=== PATIENT | female | born 1975 | race Caucasian/White ===

== ENCOUNTER 2016-11-25 11:28 | Inpatient (IN) | payer OTHER ==
[2016-11-25] MEDS ORDERED: HYDROmorphone 1 MG/ML 1 ML SYRINGE IVP STA (11:50)
[2016-11-25] MEDS ORDERED: ESOMEPRAZOLE 20 MG in SODIUM CHLORIDE 0.9% 50 ML IVPB STA (11:57)
--- NOTE | 2016-11-25 11:57 | ED ---
General Adult HPI - General Chief complaint: Abdominal Pain Stated complaint: Abdominal Pain Time Seen by Provider: 11/25/16 11:30 Source: patient, RN notes reviewed Mode of arrival: ambulatory Limitations: no limitations - History of Present Illness Initial comments: This is a 41-year-old female who presents emergency Department complaining of epigastric abdominal pain. She has a past medical history significant for significant gastric reflux. states she's always eating Tums. Patient states the pain started and has not let up. Patient states she's had in the past but always seems to resolve after a day or so. Patient states she has no nausea or vomiting. Patient states eating or drinking definitely makes it worse. Patient denies any diarrhea. Patient states palpating her abdomen does not increase the pain. Patient states it does radiate to her back and occasionally radiates into her chest. Patient denies any difficulty breathing or shortness of breath per patient denies any diaphoresis. Patient states lying flat does seem to increase the intensity of the pain. Patient denies any lightheadedness dizziness or near syncopal episode. - Related Data Home Medications Medication Instructions Recorded Confirmed Acetaminophen Tab [Tylenol Tab] 1,000 mg PO Q6HR PRN 11/25/16 11/25/16 Atenolol [Tenormin] 25 mg PO HS 11/25/16 11/25/16 Lisinopril [Zestril] 10 mg PO DAILY 11/25/16 11/25/16 Allergies Allergy/AdvReac Type Severity Reaction Status Date / Time Penicillins Allergy Rash/Hives Verified 11/25/16 11:44 Review of Systems ROS Statement: Those systems with pertinent positive or pertinent negative responses have been documented in the HPI. ROS Other: All systems not noted in ROS Statement are negative. Past Medical History Past Medical History: Hypertension History of Any Multi-Drug Resistant Organisms: None Reported Past Surgical History: Tubal Ligation Additional Past Surgical History / Comment(s): eye Past Psychological History: No Psychological Hx Reported Smoking Status: Never smoker Past Alcohol Use History: None Reported Past Drug Use History: None Reported General Exam - General Exam Comments Initial Comments: GENERAL: Patient is well-developed and well-nourished. Patient is nontoxic and well- hydrated and is in mild distress. ENT: Neck is soft and supple. No significant lymphadenopathy is noted. Oropharynx is clear. Moist mucous membranes. Neck has full range of motion without eliciting any pain. EYES: The sclera were anicteric and conjunctiva were pink and moist. Extraocular movements were intact and pupils were equal round and reactive to light. Eyelids were unremarkable. PULMONARY: Unlabored respirations. Good breath sounds bilaterally. No audible rales rhonchi or wheezing was noted. CARDIOVASCULAR: There is a regular rate and rhythm without any murmurs gallops or rubs. ABDOMEN: Soft and nontender with normal bowel sounds. No palpable organomegaly was noted. There is no palpable pulsatile mass. SKIN: Skin is clear with no lesions or rashes and otherwise unremarkable. NEUROLOGIC: Patient is alert and oriented x3. Cranial nerves II through XII are grossly intact. Motor and sensory are also intact. Normal speech, volume and content. Symmetrical smile. MUSCULOSKELETAL: Normal extremities with adequate strength and full range of motion. No lower extremity swelling or edema. No calf tenderness. LYMPHATICS: No significant lymphadenopathy is noted PSYCHIATRIC: Normal psychiatric evaluation. Limitations: no limitations Course Vital Signs 11/25/16 11/25/16 11:29 13:18 Temperature 97.8 F Pulse Rate 68 81 Respiratory 16 18 Rate Blood Pressure 131/78 146/78 O2 Sat by Pulse 100 99 Oximetry Medical Decision Making - Medical Decision Making Patient received a GI cocktail when she did it made her pain considerably worse and she had to stand up to walk around until the pain went away and eventually came back to its baseline 5 out of 10. I spoke with Dr. Dalton she wanted the scope the patient tomorrow so I spoke with Dr. Johnson he agreed to admit the patient admitted the patient and consult Dr. Dalton. - Lab Data Result diagrams: 11/25/16 12:30 11/25/16 12:30 Lab Results 11/25/16 11/25/16 11/25/16 Range/Units 12:30 12:30 12:30 WBC 9.3 (3.8-10.6) k/uL RBC 4.83 (3.80-5.40) m/uL Hgb 14.4 (11.4-16.0) gm/dL Hct 41.4 (34.0-46.0) % MCV 85.6 (80.0-100.0) fL MCH 29.8 (25.0-35.0) pg MCHC 34.8 (31.0-37.0) g/dL RDW 12.4 (11.5-15.5) % Plt Count 287 (150-450) k/uL Neutrophils % 75 % Lymphocytes % 18 % Monocytes % 4 % Eosinophils % 1 % Basophils % 0 % Neutrophils # 6.9 (1.3-7.7) k/uL Lymphocytes # 1.7 (1.0-4.8) k/uL Monocytes # 0.4 (0-1.0) k/uL Eosinophils # 0.1 (0-0.7) k/uL Basophils # 0.0 (0-0.2) k/uL Sodium 139 (137-145) mmol/L Potassium 4.3 (3.5-5.1) mmol/L Chloride 104 (98-107) mmol/L Carbon Dioxide 24 (22-30) mmol/L Anion Gap 11 mmol/L BUN 6 L (7-17) mg/dL Creatinine 0.65 (0.52-1.04) mg/dL Est GFR (MDRD) Af Amer >60 (>60 ml/min/1.73 sqM) Est GFR (MDRD) Non-Af >60 (>60 ml/min/1.73 sqM) Glucose 92 (74-99) mg/dL Calcium 9.1 (8.4-10.2) mg/dL Total Bilirubin 0.8 (0.2-1.3) mg/dL AST 24 (14-36) U/L ALT 48 (9-52) U/L Alkaline Phosphatase 65 (38-126) U/L Total Creatine Kinase 47 (30-135) U/L CK-MB (CK-2) 0.2 (0.0-2.4) ng/mL CK-MB (CK-2) Rel Index 0.4 Troponin I <0.012 (0.000-0.034) ng/mL Total Protein 7.5 (6.3-8.2) g/dL Albumin 4.6 (3.5-5.0) g/dL Amylase 40 (30-110) U/L Lipase 96 (23-300) U/L Urine Color Urine Appearance (Clear) Urine pH (5.0-8.0) Ur Specific [place] (1.001-1.035) Urine Protein (Negative) Urine Glucose (UA) (Negative) Urine Ketones (Negative) Urine Blood (Negative) Urine Nitrite (Negative) Urine Bilirubin (Negative) Urine Urobilinogen (<2.0) mg/dL Ur Leukocyte Esterase (Negative) Urine RBC (0-5) /hpf Urine WBC (0-5) /hpf Urine Bacteria (None) /hpf 11/25/16 Range/Units 12:32 WBC (3.8-10.6) k/uL RBC (3.80-5.40) m/uL Hgb (11.4-16.0) gm/dL Hct (34.0-46.0) % MCV (80.0-100.0) fL MCH (25.0-35.0) pg MCHC (31.0-37.0) g/dL RDW (11.5-15.5) % Plt Count (150-450) k/uL Neutrophils % % Lymphocytes % % Monocytes % % Eosinophils % % Basophils % % Neutrophils # (1.3-7.7) k/uL Lymphocytes # (1.0-4.8) k/uL Monocytes # (0-1.0) k/uL Eosinophils # (0-0.7) k/uL Basophils # (0-0.2) k/uL Sodium (137-145) mmol/L Potassium (3.5-5.1) mmol/L Chloride (98-107) mmol/L Carbon Dioxide (22-30) mmol/L Anion Gap mmol/L BUN (7-17) mg/dL Creatinine (0.52-1.04) mg/dL Est GFR (MDRD) Af Amer (>60 ml/min/1.73 sqM) Est GFR (MDRD) Non-Af (>60 ml/min/1.73 sqM) Glucose (74-99) mg/dL Calcium (8.4-10.2) mg/dL Total Bilirubin (0.2-1.3) mg/dL AST (14-36) U/L ALT (9-52) U/L Alkaline Phosphatase (38-126) U/L Total Creatine Kinase (30-135) U/L CK-MB (CK-2) (0.0-2.4) ng/mL CK-MB (CK-2) Rel Index Troponin I (0.000-0.034) ng/mL Total Protein (6.3-8.2) g/dL Albumin (3.5-5.0) g/dL Amylase (30-110) U/L Lipase (23-300) U/L Urine Color Light Yellow Urine Appearance Clear (Clear) Urine pH 6.0 (5.0-8.0) Ur Specific [place] 1.003 (1.001-1.035) Urine Protein Negative (Negative) Urine Glucose (UA) Negative (Negative) Urine Ketones 1+ H (Negative) Urine Blood Moderate H (Negative) Urine Nitrite Negative (Negative) Urine Bilirubin Negative (Negative) Urine Urobilinogen <2.0 (<2.0) mg/dL Ur Leukocyte Esterase Moderate H (Negative) Urine RBC 147 H (0-5) /hpf Urine WBC 18 H (0-5) /hpf Urine Bacteria Few H (None) /hpf Disposition Clinical Impression: Epigastric abdominal pain Disposition: ADMITTED IP TO THIS [facility] Referrals: Jazmyne Acevedo MD [Primary Care Provider] - 1-2 days Time of Disposition: 13:55
[2016-11-25 12:46] LABS: Basophils % (A) 0 %; CH 29.9; Eosinophils # (A) 0.1 k/uL (0-0.7); Eosinophils % (A) 1 %; HCT 41.4 % (34.0-46.0); HDW 2.63; HGB 14.4 gm/dL (11.4-16.0); Luc # (Auto) 0.18; Luc % (Auto) 2; Lymphocytes # (A) 1.7 k/uL (1.0-4.8); Lymphocytes % (A) 18 %; MCH 29.8 pg (25.0-35.0); MCHC 34.8 g/dL (31.0-37.0); MCV 85.6 fL (80.0-100.0); Mean Platelet Volume 7.5; Monocytes # (A) 0.4 k/uL (0-1.0); Monocytes % (A) 4 %; Neutrophils # (A) 6.9 k/uL (1.3-7.7); Neutrophils % (A) 75 %; RBC 4.83 m/uL (3.80-5.40); RDW 12.4 % (11.5-15.5); WBC 9.3 k/uL (3.8-10.6); WBC (Perox) 9.39
[2016-11-25 12:48] LABS: ALT 48 U/L (9-52); AST 24 U/L (14-36); Alkaline Phosphatase 65 U/L (38-126); Amylase 40 U/L (30-110); Anion Gap 11 mmol/L; Blood Urea Nitrogen 6 mg/dL (7-17); Calcium 9.1 mg/dL (8.4-10.2); Carbon Dioxide 24 mmol/L (22-30); Chloride 104 mmol/L (98-107); Glucose 92 mg/dL (74-99); Non-African American GFR(MDRD) >60 (>60 ml/min/1.73 sqM); Potassium 4.3 mmol/L (3.5-5.1); Sodium 139 mmol/L (137-145); Total Bilirubin 0.8 mg/dL (0.2-1.3); Total Protein 7.5 g/dL (6.3-8.2)
[2016-11-25] MEDS ORDERED: MAG HYDROX/AL HYDROX/SIMETH 30 ML, HYOSCYAMINE ELIXIR 10 ML, CIMETIDINE HCL 300 MG PO STA ×3 (13:04)
[2016-11-25 13:09] LABS: Creatine Kinase 47 U/L (30-135)
[2016-11-25 13:11] LABS: Appearance,Urine Clear (Clear); Bacteria,Urine Few /hpf; Bilirubin,Urine Negative (Negative); Glucose,Urine (UA) Negative (Negative); Ketones,Urine 1+ (Negative); Leukocyte Esterase,Urine Moderate (Negative); Nitrite,Urine Negative (Negative); Particle Count 1847; Protein,Urine Negative (Negative); RBC,Urine 147 /hpf (0-5); Specific Gravity,Urine 1.003 (1.001-1.035); UA Billing (MACRO vs. MICRO) MICRO; Urobilinogen,Urine <2.0 mg/dL (<2.0); WBC,Urine 18 /hpf (0-5)
[2016-11-25 13:22] LABS: Creatine Kinase MB 0.2 ng/mL (0.0-2.4); Troponin I <0.012 ng/mL (0.000-0.034)
[2016-11-25] MEDS ORDERED: SODIUM CHLORIDE 0.9% 1,000 ML IV ONE (13:56)
[2016-11-25 14:59] VITALS: BMI 31.3
[2016-11-25] MEDS ORDERED: ACETAMINOPHEN TAB 500 MG TAB PO PRN (15:57)
[2016-11-25] MEDS ORDERED: LISINOPRIL 10 MG TAB PO SCH (16:00)
--- NOTE | 2016-11-25 16:39 | US ---
EXAMINATION TYPE: US gallbladder DATE OF EXAM: 11/25/2016 COMPARISON: NONE CLINICAL HISTORY: abdominal pain. Epigastric pain EXAM MEASUREMENTS: Liver Length: 14.6 cm Gallbladder Wall: 0.7 cm CBD: 0.5 cm Right Kidney: 12.6 x 4.1 x 5.4 cm Pancreas: portions obscured by overlying bowel content Liver: attenuating Gallbladder: hydropic,multiple stones, thickened GB wall, pericholecystic fluid noted Evidence for sonographic Napoles's sign: Yes CBD: wnl Right Kidney: No evidence of hydronephrosis or mass IMPRESSION: Correlate for acute cholecystitis.
[2016-11-25] MEDS: IOHEXOL 350 MG/ML 25 ML BOTTLE (ORAL USE) PO PRN ×2 (16:54→17:46)
[2016-11-25] MEDS: HYDROmorphone 1 MG/ML 1 ML SYRINGE IVP PRN ×2 (16:54→23:23)
--- NOTE | 2016-11-25 19:02 | CT ---
EXAMINATION TYPE: CT abdomen pelvis w con DATE OF EXAM: 11/25/2016 COMPARISON: NONE HISTORY: Upper Abdominal pain CT DLP: 1493 mGycm Automated exposure control for dose reduction was used. TECHNIQUE: Helical acquisition of images was performed from the lung bases through the pelvis. CONTRAST: Performed with Oral Contrast and with IV Contrast, patient injected with 100 mL of Omnipaque 300. FINDINGS: LUNG BASES: No significant abnormality is appreciated. LIVER/GB: There are large calcified gallstones within a gallbladder which is mildly distended. The ga llbladder wall, however, is not indistinct and there is no inflammatory changes within the adjacent r ight anterior pararenal space. There is no biliary tree obstruction, and the common bile duct has nor mal caliber. No other findings. PANCREAS: No significant abnormality is seen. SPLEEN: No significant abnormality is seen. ADRENALS: No significant abnormality is seen. KIDNEYS: No significant abnormality is seen. FREE AIR: No free air is visualized. RETROPERITONEAL ADENOPATHY: None visualized REPRODUCTIVE ORGANS: No significant abnormality is seen URINARY BLADDER: No significant abnormality is seen. PELVIC ADENOPATHY: None visualized. OSSEOUS STRUCTURES: No significant abnormality is seen. BOWEL: No significant abnormality is seen. Appendix is visualized. OTHER: The vasculature of the abdomen and pelvis is unremarkable. IMPRESSION: NO EVIDENCE ACUTE INTRAPELVIC PROCESS. INCIDENTAL FINDING OF CHOLELITHIASIS WITH MILD GALLBLADDER DISTENTION.
[2016-11-25] MEDS: ATENOLOL 25 MG TAB PO SCH (21:16)
[2016-11-25] MEDS: ONDANSETRON 4 MG/2 ML VIAL IVP PRN (21:17)
[2016-11-25 21:24] LABS: Appearance,Urine Cloudy (Clear); Bacteria,Urine Moderate /hpf; Bilirubin,Urine Negative (Negative); Glucose,Urine (UA) Negative (Negative); Ketones,Urine 3+ (Negative); Leukocyte Esterase,Urine Large (Negative); Mucus,Urine Rare /hpf; Nitrite,Urine Negative (Negative); PH, Urine 5.5 (5.0-8.0); Particle Count 7412; Protein,Urine 1+ (Negative); RBC,Urine >182 /hpf (0-5); Specific Gravity,Urine 1.042 (1.001-1.035); Squamous Epithelial Cell,Urine 10 /hpf (0-4); UA Billing (MACRO vs. MICRO) MICRO; Urobilinogen,Urine <2.0 mg/dL (<2.0); WBC,Urine 53 /hpf (0-5)
[2016-11-26] MEDS: HYDROmorphone 1 MG/ML 1 ML SYRINGE IVP PRN ×3 (04:47→23:48)
--- NOTE | 2016-11-26 08:00 | HP ---
DATE OF ADMISSION: 11/25/16 CHIEF COMPLAINT: Abdominal pain and nausea. HISTORY OF PRESENT ILLNESS: This 41-year-old woman with a past medical history of multiple medical problems including hypertension, history of cataracts, tubal ligation, being followed by Dr. Acevedo in the outpatient setting is complaining of abdominal pain over several days. Because of lack of improvement and lack of improvement with TUMS, the patient came to [facility] and admitted to the hospital for further evaluation and treatment. The patient being followed by Dr. Acevedo in the outpatient setting. There is no history of any fevers, rigors or chills. No history of any headache , loss of consciousness or seizures. The pain is located in the right upper quadrant also, to the back according to her. Evaluation in the ER showed normal CBC, CMP, amylase, lipase. UA showed moderate hematuria. There is no history of fever, rigors or chills. No history of headache. Past medical history of hypertension, cataracts, tubal ligation. Medications prior to admission are: Home medications are reviewed and include: 1. Zestril 10 mg daily. 2. Tenormin 25 mg q.h.s. 3. Tylenol 1000 mg q6h prn. ALLERGIES: PENICILLIN. FAMILY HISTORY: History of hypertension in the family. SOCIAL HISTORY: Previous history of smoking. No history of alcohol intake. REVIEW OF SYSTEMS: HEENT: No diminished vision. No diminished hearing. Cardiovascular system: No angina or palpitations. Respiratory: As mentioned earlier. GI: Nausea or vomiting. : No dysuria. Nervous system: No numbness, weakness. Allergy/Immunology: No asthma or hayfever. Musculoskeletal: As mentioned earlier. Hematology/oncology: No history of anemia. Endocrine. No history of diabetes or hypothyroidism. Constitutional: As mentioned earlier. Dermatology: Negative. Rheumatology: Negative. Psychiatry: As mentioned earlier. PHYSICAL EXAMINATION: The patient is alert and oriented times three. Pulse 65. Blood pressure 145/82. Respiratory rate 16, temperature 98 degrees. Pulse ox 100% on room air. HEENT: Conjunctivae normal. NECK: No JVD. Cardiovascular: S1, S2 muffled. Respiratory: Breath sounds diminished at the bases. No rhonchi and no crackles. Abdomen is soft. Mild diffuse tenderness in the epigastric area. No guarding, no rigidity. No mass palpable. Legs: No edema. No swelling. Nervous system: Higher functions as mentioned earlier. Moves all four limbs. No focal deficits. Lymphatics: No lymph nodes palpable in the neck, axillae or groin. SKIN: No ulcer, rash or bleeding. LABS: CBC within normal limits. CMP within normal limits. ASSESSMENT: 1. Acute upper abdominal pain for evaluation, possible acute gastritis, rule out Cholelithiasis, or peptic ulcer disease. 2. Hypertension. 3. Cataracts. 4. Tubal ligation. 5. Obesity, body mass index 33.4. 6. Remote history of nicotine dependence. 7. FULL CODE. RECOMMENDATIONS AND DISCUSSION: In this 41-year-old woman who presented with multiple complex medical issues, we will monitor the patient closely. Continue the current medications. Continue symptomatic treatment. I recommend CT scan of the abdomen and pelvis and also recommend repeat UA and I would also recommend ultrasound of the abdomen, symptomatic treatment. Gastroenterology treatment. Possible EGD. Otherwise, prognosis is guarded because of the multiple complex medical issues. Further recommendations to follow. A copy of dictation being forwarded to Dr. Acevedo who is the primary care physician. I would also recommend continue with the home medications as well. Discussed with the patient, understands and agrees. MTDD
[2016-11-26 08:07] LABS: Basophils % (A) 0 %; CH 30.3; CHCM 34.8; Eosinophils % (A) 0 %; HCT 39.2 % (34.0-46.0); HDW 2.58; HGB 13.6 gm/dL (11.4-16.0); Luc # (Auto) 0.23; Luc % (Auto) 2; Lymphocytes # (A) 1.7 k/uL (1.0-4.8); Lymphocytes % (A) 13 %; MCH 30.2 pg (25.0-35.0); MCHC 34.6 g/dL (31.0-37.0); MCV 87.3 fL (80.0-100.0); Mean Platelet Volume 8.4; Monocytes # (A) 0.7 k/uL (0-1.0); Monocytes % (A) 5 %; Neutrophils # (A) 10.7 k/uL (1.3-7.7); Neutrophils % (A) 80 %; RBC 4.49 m/uL (3.80-5.40); RDW 13.2 % (11.5-15.5); WBC 13.5 k/uL (3.8-10.6); WBC (Perox) 13.48
[2016-11-26 08:18] LABS: Anion Gap 12 mmol/L; Blood Urea Nitrogen 4 mg/dL (7-17); Calcium 8.8 mg/dL (8.4-10.2); Carbon Dioxide 23 mmol/L (22-30); Chloride 104 mmol/L (98-107); Glucose 89 mg/dL (74-99); Non-African American GFR(MDRD) >60 (>60 ml/min/1.73 sqM); Potassium 4.2 mmol/L (3.5-5.1); Sodium 139 mmol/L (137-145)
[2016-11-26] MEDS: LISINOPRIL 10 MG TAB PO SCH (08:27)
[2016-11-26] MEDS: ESOMEPRAZOLE 20 MG in SODIUM CHLORIDE 0.9% 50 ML IVPB SCH (08:27)
--- NOTE | 2016-11-26 09:49 | P.CONS ---
History of Present Illness - Reason for Consult Consult date: 11/26/16 Epigastric pain Requesting physician: Geoff Pearce - History of Present Illness 41-year-old female presents with severe epigastric pain nausea vomiting since last . Patient has had episodes of this type of presentation on-and- off for years but due to lack of health insurance never was investigated. Patient was camping last day had some pork chops and developed epigastric abdominal pain shortly thereafter. Admission white count 9.3 presently 13.5. Total bilirubin 0.8. AST 24. ALT 40. Alk phos 265. Lipase 96. Consuming foods and drinking liquids exacerbates her pain. No changes in the color or urine or stool. Patient is menstruating. Urinalysis large leukocyte esterase and moderate WBCs. Large amount of blood. Ultrasound abdomen reported hydropic gallbladder with multiple stones thickened gallbladder wall 0.7 cm with pericholecystic fluid. CT abdomen and pelvis reported incidental finding of cholelithiasis with mild gallbladder distention without intra-or extrahepatic biliary dilatation. Repeat LFTs this morning are pending. She has been afebrile. Denies hematemesis hematochezia melena. Review of Systems Constitutional: Denies fever, chills, sweats, weight gain, or loss. HEENT: Negative for migraines, blurred vision or loss, earaches, drainage, tinnitus, oral mucosal lesions, dysphagia, or odynophagia. CARDIAC: Hypertension. Negative for chest pain, arrhythmias, or palpitation. RESPIRATORY: Negative for shortness of breath, hemoptysis, cough, or sputum production. GI: See HPI for pertinent findings. : Negative for hematuria, urgency, frequency, polyuria, or dysuria. GYNc: Denies possibility of . Negative vaginal discharge. MUSCULOSKELETAL: Negative for muscle aches, swelling, arthritis, and arthralgias. NEUROLOGIC: Negative for stroke or TIA. ENDOCRINE: Negative for thyroid problems. SKIN: Negative for rash or itching. PSYCHIATRIC: Negative history for depression and anxiety All systems: negative (See HPI) Past Medical History Past Medical History: Hypertension Additional Past Medical History / Comment(s): cataracts History of Any Multi-Drug Resistant Organisms: None Reported Past Surgical History: Tubal Ligation Additional Past Surgical History / Comment(s): cataracts Past Anesthesia/Blood Transfusion Reactions: No Reported Reaction Past Psychological History: No Psychological Hx Reported Smoking Status: Former smoker Past Alcohol Use History: None Reported Past Drug Use History: None Reported - Past Family History Mother Family Medical History: Hypertension Medications and Allergies Home Medications Medication Instructions Recorded Confirmed Type Acetaminophen Tab [Tylenol Tab] 1,000 mg PO Q6HR PRN 11/25/16 11/25/16 History Atenolol [Tenormin] 25 mg PO HS 11/25/16 11/25/16 History Lisinopril [Zestril] 10 mg PO DAILY 11/25/16 11/25/16 History Allergies Allergy/AdvReac Type Severity Reaction Status Date / Time Penicillins Allergy Rash/Hives Verified 11/25/16 11:44 Physical Exam Vitals: Vital Signs Temp Pulse Pulse Resp BP BP Pulse Ox 11/26/16 08:00 98.1 F 83 18 147/83 99 11/26/16 03:59 16 11/26/16 00:00 98.4 F 70 16 133/78 96 11/25/16 20:00 98.4 F 85 16 156/79 98 11/25/16 14:57 98.0 F 65 16 145/82 100 11/25/16 14:07 98 F 69 18 129/75 100 11/25/16 13:18 81 18 146/78 99 11/25/16 11:29 97.8 F 68 16 131/78 100 Intake and Output 11/25/16 11/26/16 11/26/16 22:59 06:59 14:59 Other: Voiding Method Toilet # Voids 1 1 General appearance: The patient is alert, oriented, in no acute distress. HET: Head is normocephalic and atraumatic. Pupils are equal and reactive. Oropharynx is clear without lesions. Neck: Supple without lymphadenopathy. Trachea midline. Heart: S1 S2. Regular rate and rhythm. Lungs: No crackles or wheezes are heard. Abdomen: Soft, mild midepigastric right upper quadrant tenderness, nondistended with bowel sounds. No peritoneal signs. No palpable organomegaly or masses. Extremities: Normal skin color and turgor. No cyanosis, rash, ulceration, clubbing, or edema. Radial and pedal pulses are 2/4 bilaterally. Neurological: No focal deficits. Strength and sensation are grossly intact. Results CBC & Chem 7: 11/26/16 07:38 11/26/16 07:38 Labs: Abnormal Lab Results - Last 24 Hours (Table) 11/25/16 11/25/16 11/25/16 Range/Units 12:30 12:32 20:50 WBC (3.8-10.6) k/uL Neutrophils # (1.3-7.7) k/uL BUN 6 L (7-17) mg/dL Urine Appearance Cloudy H (Clear) Ur Specific [place] 1.042 H (1.001-1.035) Urine Protein 1+ H (Negative) Urine Ketones 1+ H 3+ H (Negative) Urine Blood Moderate H Large H (Negative) Ur Leukocyte Esterase Moderate H Large H (Negative) Urine RBC 147 H >182 H (0-5) /hpf Urine WBC 18 H 53 H (0-5) /hpf Ur Squamous Epith Cells 10 H (0-4) /hpf Urine Bacteria Few H Moderate H (None) /hpf Urine Mucus Rare H (None) /hpf Urine Yeast (Budding) Few H (None) /hpf 11/26/16 11/26/16 Range/Units 07:38 07:38 WBC 13.5 H (3.8-10.6) k/uL Neutrophils # 10.7 H (1.3-7.7) k/uL BUN 4 L (7-17) mg/dL Urine Appearance (Clear) Ur Specific [place] (1.001-1.035) Urine Protein (Negative) Urine Ketones (Negative) Urine Blood (Negative) Ur Leukocyte Esterase (Negative) Urine RBC (0-5) /hpf Urine WBC (0-5) /hpf Ur Squamous Epith Cells (0-4) /hpf Urine Bacteria (None) /hpf Urine Mucus (None) /hpf Urine Yeast (Budding) (None) /hpf US - abdomen: report reviewed (Dr. Dalton) Assessment and Plan (1) Epigastric abdominal pain Narrative/Plan: 41-year-old female presents with a five-day history of epigastric pain with mild leukocytosis with radial graphic imaging suggested of hydropic gallbladder cholelithiasis thickened wall and pericholecystic fluid possible cholecystitis. Urinalysis suggestive of possible urinary tract infection with large leukocyte esterase and moderate bacteria. Status: Acute Plan: 1. Recommend general surgical evaluation. 2. Nothing by mouth except medications. 3. Nexium 20 g IV daily. 4. EGD contingent on clinical course pending general surgical evaluation. Thank you for this kind referral and the opportunity to participate in the care of your patient. This consultation was discussed with Dr. Dalton. The impression and plan of care have been directed as dictated.
[2016-11-26] MEDS: LEVOFLOXACIN 500MG-D5W PMX 500 MG in DEXTROSE/WATER 1 100ML.BAG IVPB SCH (17:07)
[2016-11-26] MEDS ORDERED: HYDROmorphone 1 MG/ML 1 ML SYRINGE IVP PRN (18:19)
--- NOTE | 2016-11-26 18:25 | P.GSCN ---
History of Present Illness Consult date: 11/26/16 Reason for Consult: abdominal pain History of present illness: The patient is a 41-year-old female presented with abdominal pain of several days' duration. She's had "spells like this in the past but they've typically gone away in a few hours. This one was persistent so she came into the emergency department. CAT scan showed cholelithiasis but was otherwise unremarkable. The ultrasound showed evidence of cholelithiasis, gallbladder wall thickening and pericholecystic fluid. The patient denies any jaundice, acholic stools, fevers or chills. There is a family history of gallbladder disease. Review of Systems All systems: negative Past Medical History Past Medical History: Hypertension Additional Past Medical History / Comment(s): cataracts History of Any Multi-Drug Resistant Organisms: None Reported Past Surgical History: Tubal Ligation Additional Past Surgical History / Comment(s): cataracts Past Anesthesia/Blood Transfusion Reactions: No Reported Reaction Past Psychological History: No Psychological Hx Reported Smoking Status: Former smoker Past Alcohol Use History: None Reported Past Drug Use History: None Reported - Past Family History Mother Family Medical History: Hypertension Medications and Allergies Home Medications Medication Instructions Recorded Confirmed Type Acetaminophen Tab [Tylenol Tab] 1,000 mg PO Q6HR PRN 11/25/16 11/25/16 History Atenolol [Tenormin] 25 mg PO HS 11/25/16 11/25/16 History Lisinopril [Zestril] 10 mg PO DAILY 11/25/16 11/25/16 History Allergies Allergy/AdvReac Type Severity Reaction Status Date / Time Penicillins Allergy Rash/Hives Verified 11/25/16 11:44 Surgical - Exam Osteopathic Statement: *. No significant issues noted on an osteopathic structural exam other than those noted in the History and Physical/Consult. Vital Signs Temp Pulse Resp BP Pulse Ox 97.8 F 68 16 131/78 100 11/25/16 11:29 11/25/16 11:29 11/25/16 11:29 11/25/16 11:29 11/25/16 11:29 - General Appears uncomfortable well developed, well nourished - ENT normal mucosa, no hearing loss - Neck trachea midline, no lymphadectomy - Respiratory normal respiratory effort, clear to auscultation - Cardiovascular Rhythm: regular - Abdomen Abdomen: soft, tender (Right upper quadrant with some voluntary guarding), surgical scars (Infraumbilical scar), no rigid, no rebound Results - Labs 11/26/16 07:38 11/26/16 07:38 Abnormal Lab Results - Last 24 Hours (Table) 11/25/16 11/26/16 11/26/16 Range/Units 20:50 07:38 07:38 WBC 13.5 H (3.8-10.6) k/uL Neutrophils # 10.7 H (1.3-7.7) k/uL BUN 4 L (7-17) mg/dL Urine Appearance Cloudy H (Clear) Ur Specific [place] 1.042 H (1.001-1.035) Urine Protein 1+ H (Negative) Urine Ketones 3+ H (Negative) Urine Blood Large H (Negative) Ur Leukocyte Esterase Large H (Negative) Urine RBC >182 H (0-5) /hpf Urine WBC 53 H (0-5) /hpf Ur Squamous Epith Cells 10 H (0-4) /hpf Urine Bacteria Moderate H (None) /hpf Urine Mucus Rare H (None) /hpf Urine Yeast (Budding) Few H (None) /hpf Diabetes panel 11/26/16 Range/Units 07:38 Sodium 139 (137-145) mmol/L Potassium 4.2 (3.5-5.1) mmol/L Chloride 104 (98-107) mmol/L Carbon Dioxide 23 (22-30) mmol/L BUN 4 L (7-17) mg/dL Creatinine 0.57 (0.52-1.04) mg/dL Glucose 89 (74-99) mg/dL Calcium 8.8 (8.4-10.2) mg/dL Calcium panel 11/26/16 Range/Units 07:38 Calcium 8.8 (8.4-10.2) mg/dL Pituitary panel 11/26/16 Range/Units 07:38 Sodium 139 (137-145) mmol/L Potassium 4.2 (3.5-5.1) mmol/L Chloride 104 (98-107) mmol/L Carbon Dioxide 23 (22-30) mmol/L BUN 4 L (7-17) mg/dL Creatinine 0.57 (0.52-1.04) mg/dL Glucose 89 (74-99) mg/dL Calcium 8.8 (8.4-10.2) mg/dL Adrenal panel 11/26/16 Range/Units 07:38 Sodium 139 (137-145) mmol/L Potassium 4.2 (3.5-5.1) mmol/L Chloride 104 (98-107) mmol/L Carbon Dioxide 23 (22-30) mmol/L BUN 4 L (7-17) mg/dL Creatinine 0.57 (0.52-1.04) mg/dL Glucose 89 (74-99) mg/dL Calcium 8.8 (8.4-10.2) mg/dL - Imaging CT scan - abdomen: report reviewed Additional studies: Ultrasound report reviewed Assessment and Plan (1) Acute cholecystitis due to biliary calculus Status: Acute Plan: I recommended laparoscopic cholecystectomy possible open. The procedure risks and complications were discussed. Questions were encouraged and answered. She likely also has an acute urinary tract infection but is on appropriate antibiotics. I'll do the surgery for her tomorrow.
[2016-11-26] MEDS: ATENOLOL 25 MG TAB PO SCH (19:59)
[2016-11-26] MEDS ORDERED: MAG HYDROX/AL HYDROX/SIMETH 30 ML CUP PO PRN (23:53)
[2016-11-27] MEDS: HYDROmorphone 1 MG/ML 1 ML SYRINGE IVP PRN (02:54)
[2016-11-27] MEDS: ONDANSETRON 4 MG/2 ML VIAL IVP PRN ×2 (04:27→12:51)
--- NOTE | 2016-11-27 08:02 | PN ---
DATE OF SERVICE: 11/26/2016 This 41-year-old woman who was admitted with acute abdominal pain, also has possible cholelithiasis and cholecystitis. No chest pain or palpitation. No fever. The gallbladder ultrasound has been ordered and showed possible acute cholecystitis. The CAT scan of the abdomen was also done. The patient is followed by Dr. Acevedo in the outpatient setting. The CAT scan of the abdomen and pelvis showed no evidence of intrapelvic process and cholelithiasis and gallbladder distention was noted. PAST MEDICAL HISTORY: Reviewed. REVIEW OF SYSTEMS: CARDIOVASCULAR: No angina. RESPIRATORY: No cough or hemoptysis. GI: No nausea. : No dysuria. NERVOUS SYSTEM: No numbness or weakness. Current medications are reviewed and include: 1. Tylenol. 2. Tenormin. 3. Esomeprazole. 4. Dilaudid. 5. Zofran. PHYSICAL EXAM: The patient is alert and oriented x3. Pulse is 90, blood pressure 147/78, respirations are 18, temperature is 98.8, pulse ox 100% on room air. HEENT: Conjunctivae normal. Oral mucosa moist. NECK: No jugular venous distention. No carotid bruit. No lymph node enlargement. CARDIOVASCULAR: S1 and S2 muffled. RESPIRATORY: Breath sounds diminished at the bases. A few scattered rhonchi. No crackles. ABDOMEN: Soft, mild diffuse tenderness in the upper quadrant present, otherwise , no mass palpable. No guarding or rigidity. LEGS: No edema. No swelling. NERVOUS SYSTEM: No focal deficits. LABS: WBC 13.5. UA noted. ASSESSMENT: 1. Acute abdominal pain with possible acute cholelithiasis and cholecystitis and possible urinary tract infection. 2. Hypertension. 3. Cataracts. 4. Tubal ligation. RECOMMENDATIONS AND DISCUSSION: Recommend to continue current medications. Continue with monitoring and symptomatic treatment. Otherwise at this time, I would recommend surgical evaluation and possible surgery, laparoscopic cholecystectomy. Repeat labs. Guarded prognosis because multiple complex medical issues. Further recommendation to follow. See orders for details. MTDD
[2016-11-27] MEDS: LISINOPRIL 10 MG TAB PO SCH (09:56)
[2016-11-27] MEDS: ESOMEPRAZOLE 20 MG in SODIUM CHLORIDE 0.9% 50 ML IVPB SCH (10:04)
[2016-11-27] MEDS ORDERED: IV FLUID CONTINUATION 800 ML IV ONE (12:29)
[2016-11-27] MEDS ORDERED: DEXAMETHASONE SOD PHOS (MDV) 100 MG/10 ML VIAL IVP ONE (12:48)
[2016-11-27] MEDS ORDERED: SCOPOLAMINE 1.5MG/72HR PATCH TRANSDERM ONE (12:49)
[2016-11-27] MEDS ORDERED: HYDROmorphone 1 MG/ML 1 ML SYRINGE IVP PRN (12:54)
[2016-11-27] MEDS ORDERED: LACTATED RINGERS 1,000 ML IV SCH (13:00)
[2016-11-27] MEDS ORDERED: KETOROLAC 30 MG/ML 1 ML VIAL ONE (13:03)
[2016-11-27] MEDS ORDERED: PROPOFOL 10 MG/ML 20 ML VIAL IV ONE (13:03)
[2016-11-27] MEDS ORDERED: MIDAZOLAM 2 MG/2 ML VIAL ONE (13:03)
[2016-11-27] MEDS ORDERED: HYDROmorphone (PF) 1 MG/ML ONE (13:03)
[2016-11-27] MEDS ORDERED: GLYCOPYRROLATE 0.2 MG/ML 2 ML VIAL ONE (13:03)
[2016-11-27] MEDS ORDERED: ROCURONIUM BROMIDE 10 MG/ML 10 ML VIAL IV ONE (13:03)
[2016-11-27] MEDS ORDERED: ePHEDrine 50 MG/ML 1 ML AMP ONE (13:03)
[2016-11-27] MEDS ORDERED: LIDOCAINE 1% INJ 10MG/ML (20 ML MDV) ONE (13:03)
[2016-11-27] MEDS ORDERED: NEOSTIGMINE 1 MG/ML 10 ML VIAL ONE (13:03)
[2016-11-27] MEDS ORDERED: BUPIVACAIN-EPI 0.5%-1:200,000 30 ML VIAL SQ ONE (13:26)
[2016-11-27] MEDS ORDERED: LACTATED RINGERS 1,000 ML IV ONE ×2 (13:34→15:33)
[2016-11-27] MEDS ORDERED: NALOXONE 0.4 MG/ML 1 ML VIAL IV PRN (15:06)
[2016-11-27] MEDS ORDERED: HYDROcodone/APAP 5-325MG 1 EACH TAB PO PRN ×2 (15:06)
--- NOTE | 2016-11-27 15:06 | P.OP ---
Date of Procedure: 11/27/16 Preoperative Diagnosis: Acute cholecystitis with cholelithiasis Postoperative Diagnosis: Same Procedure(s) Performed: Laparoscopic cholecystectomy Implants: Anesthesia: JOSSELINE Surgeon: Emmie Lizama Estimated Blood Loss (ml): 100 Pathology: other (Gallbladder) Condition: stable Disposition: PACU Indications for Procedure: The patient presented with several day history of abdominal pain, nausea and vomiting. Workup showed evidence of cholelithiasis and cholecystitis Operative Findings: Acute cholecystitis with a markedly distended gallbladder. There was a stone impacted in Cordero's pouch. The gallbladder showed evidence of prolonged obstruction with aspiration of about 80 mL's of white bile Description of Procedure: The patient was taken the operative suite where she is prepped and draped in usual sterile manner under general endotracheal anesthetic. An infraumbilical incision was made. The fascia was grasped and incised. The peritoneum was grasped and incised. A finger sweep was carried out. A balloon trocar was then inserted and pneumoperitoneum was established with CO2 gas. Sites are chosen for accessory trochars needs are placed through small skin incisions. The liver, diaphragm, large and small bowel were normal where they were seen. The gallbladder was decompressed of white bile. The fundus was then grasped and retracted superiorly. Stone impacted in Cordero's pouch. The lymph node identified. The cystic artery and cystic duct were then tediously dissected free. Once those were clearly visualized, the cystic duct was triply clipped and cut. The stump was secured with 0 PDS Endoloop. The artery was clipped and cut. A lymphatic from the lymph node was clipped. The gallbladder was then tediously dissected free from the liver bed. Small bleeding points were controlled with electrocautery. The gallbladder was placed into a specimen retrieval bag. The liver bed was examined and noted to be hemostatic. The exit irrigant was suctioned out. The pneumoperitoneum was released. The trochars were removed. The skin and fascia at the umbilicus had to be extended to allow for removal of the gallbladder and stones. The fascia at the umbilicus was closed with 0 Vicryl. The skin incisions were closed with 4-0 Vicryl in a subcuticular manner. Steri-Strips and dressings were applied. Tolerated the procedure without difficulty and was taken recovery room in satisfactory condition. According to or personnel all counts were correct.
[2016-11-27] MEDS: KETOROLAC 30 MG/ML 1 ML VIAL IVP SCH ×2 (16:01→21:51)
[2016-11-27] MEDS: LEVOFLOXACIN 500MG-D5W PMX 500 MG in DEXTROSE/WATER 1 100ML.BAG IVPB SCH (17:01)
--- NOTE | 2016-11-27 20:26 | PN ---
DATE OF SERVICE: 11/27/2016 This 41-year-old woman who was admitted with acute abdominal pain also had acute cholelithiasis and cholecystic. The patient is slated for a laparoscopic cholecystectomy by Dr. Lizama today. No chest pain. No palpitations. No fever. No shortness of breath. On exam, alert and oriented x3. Pulse 75, blood pressure 97/53, respiration 18, temperature 99 degrees, pulse ox 98% on room air. HEENT: Conjunctivae normal. NECK: No jugular venous distention. CARDIOVASCULAR: S1, S2 muffled. RESPIRATORY: Breath sounds diminished at the bases. No rhonchi. No crackles. ABDOMEN: Soft. Mild diffuse discomfort in the upper quadrants. LEGS: No edema. No swelling. NERVOUS SYSTEM: No focal deficit. LABS: WBC 13.5. ASSESSMENT: 1. Acute abdominal pain with cholecystitis and cholelithiasis. 2. Acute urinary tract infection. 3. Hypertension. 4. History of cataracts. 5. History of tubal ligation. RECOMMENDATIONS AND DISCUSSION: At this time I recommend to continue the current medications, continue the monitoring and symptomatic treatment. Otherwise, at this time I recommend continuing with IV antibiotics. Closely follow with Dr. Lizama for possible surgery. Further recommendations to follow. JUANID
[2016-11-27] MEDS: ATENOLOL 25 MG TAB PO SCH (21:51)
[2016-11-28] MEDS: KETOROLAC 30 MG/ML 1 ML VIAL IVP SCH ×2 (03:54→08:28)
[2016-11-28 07:27] VITALS: BP 117/63; PULSE 79; RESP 16; TEMP 97.8
[2016-11-28] MEDS: LISINOPRIL 10 MG TAB PO SCH (08:28)
[2016-11-28] MEDS: ESOMEPRAZOLE 20 MG in SODIUM CHLORIDE 0.9% 50 ML IVPB SCH (08:28)
--- NOTE | 2016-11-28 09:37 | P.PN ---
Subjective Principal diagnosis: Acute cholecystitis duct obstruction The patient is postoperative day 1 laparoscopic cholecystectomy. She feels great. No further nausea or vomiting. She is anxious to go home. Diet. Objective - Vital Signs Vital signs: Vital Signs Temp 97.8 F 11/28/16 07:22 Pulse 79 11/28/16 07:22 Resp 16 11/28/16 07:22 BP 117/63 11/28/16 07:22 Pulse Ox 95 11/28/16 07:22 Intake & Output 11/27/16 11/28/16 11/28/16 18:59 06:59 18:59 Intake Total 2100 1120 Output Total 10 Balance 2089 1120 Weight 96.6 kg 96.6 kg Intake: IV 2100 160 Lactated Ringers 1,000 ml 200 160 @ 20 mls/hr IV .Q24H KILO Rx#:[id number] Oral 960 Output: Estimated Blood Loss 10 Other: Voiding Method Toilet Toilet # Voids 1 1 1 - Constitutional General appearance: Present: cooperative, no acute distress - Gastrointestinal General gastrointestinal: Present: normal bowel sounds, soft Localized gastrointestinal: surgical scar: diffuse (Dressings intact) - Labs CBC & Chem 7: 11/26/16 07:38 11/26/16 07:38 Assessment and Plan (1) Acute cholecystitis due to biliary calculus Status: Acute Plan: The patient is surgically stable for discharge. Orders and instructions were placed on the chart. I'll see her in the office in 2 weeks.
--- NOTE | 2016-12-01 13:17 | DS ---
FINAL DIAGNOSES: 1. Acute abdominal pain with cholecystitis and Cholelithiasis status post laparoscopic cholecystectomy. 2. Acute urinary tract infection. 3. Hypertension. 4. History of cataracts. 5. History of tubal ligation. DISCHARGE DISPOSITION: The patient is being discharged in stable condition with guarded prognosis. Total time taken 35 minutes. HISTORY OF PRESENT ILLNESS: This 41-year-old woman with past medical history of multiple medical problems being followed by Dr. Acevedo in the outpatient setting was admitted with abdominal pain. The patient underwent laparoscopic cholecystectomy by Dr. Lizama. The patient improved significantly. On exam, vital signs are stable. Cardiovascular: S1, S2 normal. Abdomen soft. Nervous system: No focal deficits. Recommend outpatient follow-up with Dr. Acevedo. Cultures negative. DISCHARGE ADVICE AND MEDICATIONS: 1. Diet is cardiac. 2. Activity limited until follow up. 3. Follow-up with Dr. Acevedo in two to three days. 4. Follow-up with Dr. Lizama as advised. Medications are: 1. Tylenol 1000 mg q6h prn. 2. Tenormin 25 mg q.h.s. 3. Chinqu[place]in 5 mg q6h prn. 4. Levaquin 500 mg po daily for five days. 5. Zestril 10 mg po daily. Once again, the patient is being discharged in stable condition with guarded prognosis. MTDD
== END 2016-11-28 12:45 | disposition home or self-care (01) | DRG 418 ==
LOC: EC 11:28 → 3OBS 13:56 → OBSVTOIN 11-26 14:44 → 3SUR 11-27 09:00
PROVIDERS: ADMIT Internal Medicine; ATTEND Internal Medicine
PROC: 0FT44ZZ Resection of Gallbladder, Percutaneous Endoscopic Approach (ICD-10-PCS; principal; 2016-11-27 07:30)
DX: K80.01 Calculus of gallbladder with acute cholecystitis with obstruction (principal); K82.1 Hydrops of gallbladder; I10 Essential (primary) hypertension; N39.0 Urinary tract infection, site not specified; E66.9 Obesity, unspecified; H26.9 Unspecified cataract; K21.9 Gastro-esophageal reflux disease without esophagitis; Z79.899 Other long term (current) drug therapy; Z82.49 Family history of ischemic heart disease and other diseases of the circulatory system; Z87.891 Personal history of nicotine dependence; Z98.51 Tubal ligation status
CPT/HCPCS: 36415; 74177; 76705; 80048; 80053; 81001; 81025; 82150; 82550; 82553; 83690; 84484; 85025; 88304; 96365; 96366; 96375; 99284

== ENCOUNTER → 2020-02-20 | Outpatient (CLI) | payer BC ==
--- NOTE | 2020-02-20 13:52 | MM ---
Reason for exam: screening (asymptomatic). Baseline mammogram. History: Took hormonal contraceptives for 2 years beginning at age 17. Physical Findings: Nurse did not find any significant physical abnormalities on exam. MG 3D Screening Mammo W/Cad Bilateral CC and MLO view(s) were taken. The breast tissue is heterogeneously dense. This may lower the sensitivity of mammography. Posterior medial right CC asymmetric density incompletely disperses on 3D. 11-12 o'clock focal asymmetry middle depth left breast also incompletely disperses on 3D. 4.2 x 2.9cm circumscribed mass left upper outer quadrant. These results were verbally communicated with the patient and result sheet given to the patient on 02/20/20. ASSESSMENT: Incomplete: need additional imaging evaluation, BI-RAD 0 RECOMMENDATION: Special view mammogram of both breasts. Ultrasound of the left breast. (upper outer quadrant)
--- NOTE | 2020-02-20 13:55 | MM ---
Reason for exam: additional evaluation requested from abnormal screening. History: Took hormonal contraceptives for 2 years beginning at age 17. Physical Findings: Breast exam preformed at baseline screening. MG 3D Work Up W/Cad MELVIN Bilateral spot compression CC and spot compression MLO view(s) were taken. The breast tissue is heterogeneously dense. This may lower the sensitivity of mammography. Asymmetric density on the right does not persist. Central posterior MLO asymmetric density on the left disperses. Large mass left upper outer quadrant. A second smaller circumscribed mass not apparent adjacent. These results were verbally communicated with the patient and result sheet given to the patient on 02/20/20. ASSESSMENT: Incomplete: need additional imaging evaluation, BI-RAD 0 RECOMMENDATION: Ultrasound of the left breast. (11-4 o'clock)
--- NOTE | 2020-02-20 13:57 | USB ---
Reason for exam: additional evaluation requested from abnormal screening. History: Took hormonal contraceptives for 2 years beginning at age 17. US Breast Workup Limited LT Left limited breast ultrasound including focal area of concern, retroareolar and axilla demonstrates a 3.8 x 1.6 x 4.1cm cystic lesion at 2 o'clock, adjacent smaller 1.4cm cyst and a 4 x 2 x 3mm cystic lesion at 4 o'clock. All benign. 6 month follow up mammogram recommended for the central asymmetric density. Scanned 11-4 o'clock. These results were verbally communicated with the patient and result sheet given to the patient on 02/20/20. ASSESSMENT: Probably benign, BI-RAD 3 RECOMMENDATION: Follow-up diagnostic mammogram of the left breast in 6 months.
== END | disposition home or self-care (01) ==
LOC: RADMAMWWP 10:18
PROVIDERS: ATTEND Internal Medicine
DX: Z12.31 Encounter for screening mammogram for malignant neoplasm of breast (principal); R92.8 Other abnormal and inconclusive findings on diagnostic imaging of breast
CPT/HCPCS: 77062; 77063; 77066; 77067

== ENCOUNTER → 2021-03-13 | Outpatient (CLI) | payer BC | END | disposition home or self-care (01) | LOC: LABWHC1 12:33 | PROVIDERS: ATTEND Internal Medicine | DX: U07.1 COVID-19 (principal); R50.9 Fever, unspecified; R05.9 Cough, unspecified | CPT/HCPCS: U0003; C9803; U0005 ==

== ENCOUNTER → 2021-06-19 | Outpatient (CLI) | payer BC ==
--- NOTE | 2021-06-20 10:52 | MM ---
Reason for exam: screening (asymptomatic). Last mammogram was performed 1 year and 4 months ago. History: Took hormonal contraceptives for 2 years beginning at age 17. Physical Findings: A clinical breast exam by your physician is recommended on an annual basis and results should be correlated with mammographic findings. MG 3D Screening Mammo W/Cad Bilateral CC and MLO view(s) were taken. XCCL view(s) were taken of the right breast. Prior study comparison: February 20, 2020, bilateral MG 3d work up w/cad MELVIN. February 20, 2020, bilateral MG 3d screening mammo w/cad. The breast tissue is heterogeneously dense. This may lower the sensitivity of mammography. No significant changes when compared with prior studies. ASSESSMENT: Benign, BI-RAD 2 RECOMMENDATION: Routine screening mammogram of both breasts in 1 year.
== END | disposition home or self-care (01) ==
LOC: RADMAMWWP 07:09
PROVIDERS: ATTEND Internal Medicine
DX: Z12.31 Encounter for screening mammogram for malignant neoplasm of breast (principal)
CPT/HCPCS: 77063; 77067